=== PATIENT | male | born 1935 | race Caucasian/White ===

== ENCOUNTER 2019-09-05 10:57 | Emergency (ER) | payer OTHER, MEDICARE ==
[~2019-09-05] VITALS: Ht 182.9 cm; Wt 100.0 kg
[~2019-09-05 10:57] MED LIST: COU4T PO; DIGO250T PO; METO1TAB12 PO; OXYB5TAB16 PO; SIMV-42 PO; TERA10CA4 PO; WARF-55 PO; WARF3TAB56 PO; XAL0.005OS EACHEYE
[2019-09-05 11:23] LABS: BASOPHILS % (AUTO) 0.6 % (0-1); EOSINOPHILS # (AUTO) 0.3 X10'3 (0-0.9); HEMATOCRIT 43.6 % (42.0-52.0); HEMOGLOBIN 14.7 g/dl (14.0-17.9); LYMPHOCYTES % (AUTO) 11.9 % (21-51); MEAN CORPUSCULAR HEMOGLOBIN 32.4 PG (27.0-31.0); MEAN CORPUSCULAR HGB CONC 33.6 g/dL (33.0-36.5); MEAN CORPUSCULAR VOLUME 96.3 FL (78-98); MEAN PLATELET VOLUME 8.2 FL (7.4-10.4); MONOCYTES % (AUTO) 12.4 % (2-12); NEUTROPHILS % (AUTO) 72.1 % (42-75); PLATELET COUNT 222 X10'3 (140-440); RED BLOOD COUNT 4.53 X10'6 (4.70-6.10); RED CELL DISTRIBUTION WIDTH 14.3 % (11.5-14.5); WHITE BLOOD COUNT 8.3 X10'3 (4.5-11.0)
--- NOTE | 2019-09-05 11:27 | NUR ---
contact number [phone] shell elena, caregiver
--- NOTE | 2019-09-05 11:38 | NUR ---
RIGHT EYELID DROOPS DUE TO CATARACT SURGERY
[2019-09-05 11:41] LABS: ALANINE AMINOTRANSFERASE 17 U/L (12-78); ALBUMIN 3.8 G/DL (3.4-5.0); ALBUMIN/GLOBULIN RATIO 1.1 (1.1-1.5); ALKALINE PHOSPHATASE 72 IU/L (46-116); ANION GAP 8 (8-16); ASPARTATE AMINO TRANSFERASE 18 U/L (10-37); BILIRUBIN,TOTAL 0.6 MG/DL (0.1-1.0); BLOOD UREA NITROGEN 25 MG/DL (7-18); BUN/CREATININE RATIO 20.8 (5.4-32.0); CALCIUM 9.1 MG/DL (8.5-10.1); CHLORIDE 107 MMOL/L (99-107); GLUCOSE 110 MG/DL (70-104); POTASSIUM 4.2 MMOL/L (3.5-5.1); SODIUM 143 MMOL/L (135-145); TOTAL CARBON DIOXIDE 28.3 MMOL/L (24-32); TOTAL PROTEIN 7.2 G/DL (6.4-8.2); eGFR 58 ML/MIN
[2019-09-05] MEDS ORDERED: APIX5TAB3 PO (12:18)
[2019-09-05] MEDS ORDERED: METO-477 PO (12:18)
--- NOTE | 2019-09-05 12:27 | NUR ---
CALLED BRYANNA, CAREGIVER, SAYS IS GETTING PHONE FIXED AND WILL COME AND [employer]VIEW PROGRAMMER, SHE WILL CALL WHEN SHE ARRIVES
[2019-09-05 12:51] VITALS: BP 105/60
== END 2019-09-05 12:53 | disposition home or self-care (01) ==
LOC: ER 10:58
DX: R00.1 Bradycardia, unspecified (principal); I48.91 Unspecified atrial fibrillation; E78.00 Pure hypercholesterolemia, unspecified; I10 Essential (primary) hypertension; E11.9 Type 2 diabetes mellitus without complications; Z98.890 Other specified postprocedural states; Z79.01 Long term (current) use of anticoagulants
CPT/HCPCS: 36415; 71045; 80053; 84484; 85025; 93005; 99285